=== PATIENT | female | born 1950 | race Two or more races ===

== ENCOUNTER 2021-03-12 07:50 | Day surgery (SDC) | payer OTHER ==
[~2021-03-12 07:50] MED LIST: HYDROCH PO; LISINO PO; METFORMIN HCL500 MG PO
== END 2021-03-12 18:30 | disposition home or self-care (01) ==
LOC: CIR.AMB 07:50
PROVIDERS: ATTEND Colon & Rectal Surgery
DX: K64.2 Third degree hemorrhoids (principal); K64.4 Residual hemorrhoidal skin tags; Z20.822 Contact with and (suspected) exposure to COVID-19

== ENCOUNTER 2021-03-24 15:04 | Emergency (ER) | payer OTHER ==
[~2021-03-24] VITALS: Ht 157.5 cm; Wt 59.0 kg
[2021-03-25] MEDS ORDERED: CIPRO500 MG PO (00:10)
== END 2021-03-25 00:10 | disposition home or self-care (01) ==
LOC: ER 15:04
DX: N39.0 Urinary tract infection, site not specified (principal)